=== PATIENT | male | born 1950 | race Caucasian/White ===

== ENCOUNTER → 2018-06-14 15:15 | Outpatient (CLI) | payer MEDICARE, OTHER, SELFPAY ==
--- NOTE | 2018-06-14 | DI.MRI.S_ITS ---
PROCEDURE: MR ELBOW LT WO/W CON INDICATIONS: Lateral left elbow mass TECHNIQUE: Noncontrast coronal proton density fast spin echo and T2 fast spin echo with fat saturation, coronal T1 spin echo with fat saturation, axial and sagittal T1 spin echo and T2 fast spin echo with fat saturation through the elbow. Post-contrast coronal, axial, and sagittal T1 spin echo with fat saturation through the elbow. COMPARISON: None. FINDINGS: Image quality: Excellent. Lateral structures: Surface marker is placed over the anterolateral aspect of elbow joint at the level of radial neck. No enhancing soft tissue mass is seen at the site of the marker. No underlying muscle signal abnormality. The lateral ulnar collateral ligament and radial collateral ligament both appear intact. The overlying common extensor tendon also appears normal. Medial structures: The ulnar collateral ligament appears intact. The overlying common flexor tendon appears normal. The ulnar nerve appears normal in size and signal within the cubital tunnel. Anterior structures: The biceps and brachialis tendons both appear intact as they insert onto the proximal radius and ulna, respectively. No bicipitoradial bursal fluid. The median and radial neurovascular bundles appear normal; no focal muscle atrophy to suggest nerve impingement. Posterior structures: The conjoint triceps tendon from the long and lateral heads appears intact. The medial head of the triceps tendon also appears normal, with direct muscle insertion onto the olecranon. No olecranon bursal fluid. Bone and cartilage: No suspicious osseous enhancement. No bone marrow contusions or fractures. No osteochondral injuries. IMPRESSION: No discrete soft tissue mass or area of abnormal enhancement is seen. No marrow signal abnormality. Obl tendons and ligaments are intact. Dictated by: Jus Courtney M.D. on 06/15/2018 at 12:59 Approved by: Jus Courtney M.D. on 06/15/2018 at 13:05
== END ==
PROVIDERS: Family Provider Family Medicine; PCP Family Medicine; Visit Provider Family Medicine
DX: R22.32 Localized swelling, mass and lump, left upper limb (principal)
CPT/HCPCS: 73223; A9579

== ENCOUNTER → 2020-03-17 10:36 | Outpatient (CLI) | payer MEDICARE, OTHER, SELFPAY ==
--- NOTE | 2020-03-17 | DI.MRI.S_ITS ---
PROCEDURE: MR LUMBAR SPINE WO CON INDICATIONS: Pain in unspecified ankle and joints of unspecified foot TECHNIQUE: Noncontrast sagittal T1 spin echo and T2 fast echo, coronal T2, sagittal STIR, axial T1 and T2 fast spin echo through the lumbar spine. COMPARISON: None. FINDINGS: Image quality: Excellent. Alignment and Curvature: No plain films are available for comparison, for numbering purposes. Thus, for the purposes of this examination, 5 lumbar type vertebral bodies will be presumed, as denoted on the montage panel. This should be confirmed and correlated with plain films, prior to any lumbar spinal intervention. Mild rightward curvature of the mid lumbar spine. Loss of normal lumbar lordosis. Mild grade 1 retrolisthesis of L1 on L2, L2 on L3, and L3 on L4. Bone Marrow: Marrow is of normal overall signal. No acute vertebral body compression fractures. Mild reactive signal within the endplates adjacent to the T11-T12, L1-L2, L2-L3, L3-L4, L4-L5, and L5-S1 intervertebral discs. Spinal Cord: Conus medullaris terminates at the upper L1 level. Visualized cord demonstrates normal signal and size. Paraspinous Soft Tissues: No paravertebral masses. T12-L1: Mild disc desiccation. Mild facet and ligamentum flavum hypertrophy. Mild canal stenosis. No foraminal stenosis. L1-L2: Moderate disc height loss and desiccation. Mild diffuse disc bulge. Mild facet and ligamentum flavum hypertrophy. Mild epidural lipomatosis. Mild canal stenosis. Mild bilateral foraminal stenosis. L2-L3: Moderate disc height loss and desiccation. Moderate diffuse disc bulge. Mild facet and ligamentum flavum hypertrophy. Mild epidural lipomatosis. Moderate canal stenosis. Mild bilateral foraminal stenosis. L3-L4: Moderate disc height loss and desiccation. Moderate diffuse disc bulge with superimposed broad-based left posterolateral and far lateral protrusion. Mild facet hypertrophy bilaterally. Mild canal stenosis. Mild left greater than right foraminal stenosis. L4-L5: Moderate disc height loss and desiccation. Moderate diffuse disc bulge. Moderate facet and ligamentum flavum hypertrophy. Mild canal stenosis. Moderate bilateral foraminal stenosis. L5-S1: Mild disc height loss. Moderate disc desiccation. Mild diffuse disc bulge with small superimposed left paracentral protrusion. Moderate right greater than left facet hypertrophy. Mild canal stenosis. Mild right foraminal stenosis. No left foraminal stenosis. Mild posterior deviation of the left S1 nerve root within the lateral recess. IMPRESSION: 1. Multilevel degenerative disc and facet disease, as well as ligamentum flavum hypertrophy and epidural lipomatosis. 2. Multilevel canal stenosis, worst at L2-L3, where there is moderate canal stenosis. 3. Multilevel foraminal stenoses, worst at L4-L5, where there are moderate foraminal stenosis. 4. Posterior deviation of the left S1 nerve root within the lateral recess at the L5-S1 disc space level. Recommend correlation with clinical symptoms to ascertain relevance of this finding. 5. 5 lumbar type vertebral bodies were presumed for the current report. Plain films of the lumbar spine are recommended for confirmation, prior to any lumbar spinal intervention. Dictated by: Luanne Griffith M.D. on 03/17/2020 at 11:42 Approved by: Luanne Griffith M.D. on 03/17/2020 at 11:46
== END ==
PROVIDERS: Family Provider Family Medicine; PCP Family Medicine; Referring Provider Family Medicine; Visit Provider Family Medicine
DX: M51.16 Intervertebral disc disorders with radiculopathy, lumbar region (principal); M51.17 Intervertebral disc disorders with radiculopathy, lumbosacral region; M48.061 Spinal stenosis, lumbar region without neurogenic claudication; M48.07 Spinal stenosis, lumbosacral region; E88.2 Lipomatosis, not elsewhere classified; M25.579 Pain in unspecified ankle and joints of unspecified foot
CPT/HCPCS: 72148

== ENCOUNTER 2020-05-28 14:04 | Outpatient (CLI) | payer MEDICARE, OTHER, SELFPAY ==
[2020-05-28] VITALS (9 sets, daily range): BP systolic 112–143; BP diastolic 63–80; PULSE 65–78; RESP 12–16; TEMP 37.5; O2SAT 93–98
--- NOTE | 2020-05-28 14:07 | DI.RAD.S_ITS ---
PROCEDURE: PAIN L/S TRANSFORAMINAL INJECT INDICATIONS: SPONDYLOSIS COMPARISON: [facility], MR, MR LUMBAR SPINE WO CON, 03/17/2020, 11:19. FINDINGS: Fluoroscopic spot filming was performed to verify placement of a spinal needle at the L4-L5 level, as labeled on the films. Appropriate location of the needle tip was confirmed by injection of iodinated contrast. IMPRESSION: Intraprocedural examination within normal limits. Dictated by: Sebastián Landrum M.D. on 05/28/2020 at 14:43 Approved by: Sebastián Landrum M.D. on 05/28/2020 at 14:43
[2020-05-28] MEDS: fentaNYL 100 MCG/2 ML INJ 50 MCG IV ×2 (14:54→14:58)
[2020-05-28] MEDS: BUPIVACAINE 0.25% (PF) VIAL 2 ML INJ (14:54)
[2020-05-28] MEDS: DEXAMETHASONE 10 MG/ML VIAL 20 MG INJ (14:55)
[2020-05-28] MEDS: BETAMETHASONE 30 MG/5 ML MDV 6 MG INJ (14:55)
[2020-05-28] MEDS: IOPAMIDOL 15 ML VIAL 3 ML INJ (14:55)
[2020-05-28] MEDS: MIDAZOLAM 5 MG/5 ML VIAL IV (14:58)
--- NOTE | 2020-05-28 15:08 | P.PCN_ITS ---
Date/Time/Diagnoses Date of procedure: 05/28/20 Time of procedure: 15:08 Pre-procedure diagnosis: 1. FORAMINAL STENOSIS WITH LE SYMPTOMS Post-procedure diagnosis: same Procedure Notes Procedure: 1. FLUOROSCOPICALLY GUIDED CONTRAST CONTROLLED TRANSFORAMINAL EPIDURAL STEROID INJECTION - LEFT L4/5 SUBNEURAL ELIEZER Indications: Colt is referred by Dr. Marin and for treatment of HNP with Left LE Symptoms Physician: Ld Matson Total Fluoroscopy time (seconds): 9 Total sedation minutes: 13 Complications: none Procedure in detail & Post-procedure care: FINDINGS Foraminal Nerve Root Compression secondary to disc disease and facet hypertrophy DESCRIPTION OF PROCEDURE Following review of allergy and review of potential side effects and complications, including, but not necessarily limited to, infection, allergic reaction, local tissue breakdown, stroke, temporary or permanent nerve injury, paralysis, and possible , the patient indicated that the patient understood and agreed to proceed. An informed consent document was signed by the patient, witnessed by a nurse, and placed in the patient's chart. Additionally, other treatment options including medications, modalities, and physical therapy were reviewed with the patient. After review of previous anaesthesic history and IV conscious sedation the patient was deemed safe to proceed with today?s procedure with IV conscious sedation as ASA class II designation. Safety time-out was performed to confirm patient ID, procedure to be performed and site of procedure. IV sedation was accomplished with a combination of 5mg of Versed and 100mcg of Fentanyl administered by the RN after DO order, titrated to patient comfort during the course of the procedure while the patient remained responsive to all verbal co mmands In the prone position following sterile prep and drape of the lumbar region, the left L4/5 posterior neuroforamen was identified fluoroscopically. The skin was anesthetized via a 25-gauge 1.5-inch needle with 1% lidocaine solution. At this point, a 25-gauge 3.5-inch spinal needle was atraumatically introduced and advanced under fluoroscopic guidance through the posterior left L4/5 neur oforamen to approximately the anterior aspect of the canal. Depth was confirmed on lateral view. Following negative aspiration, injection of approximately 1.5 cc of Isovue 200 under live fluoroscopy in the AP view confirmed excellent flow along the nerve root, into the epidural space without vascular or intrathecal uptake observed Radiological data, including multiple fluoroscopic views of the lumbosacral spine, reveal a spinal needle at the left L4/5 posterior neuroforamen. Subsequent views show flow of contrast material flowing superiorly and inferiorly along the nerve root confirming epidural flow. Subsequently, a test dose of 1.5 cc of 1% lidocaine solution was administered and patient was observed for two minutes for signs or symptoms of complications, including abdominal pain, shortness of breath, bilateral upper or lower extremity weakness, nausea and vomiting, prior to steroid injection. At this point, a total of 3cc or 20mg of dexamethasone and 6mg of betamethasone was injected without incident. The procedure tolerated the procedure well without signs or symptoms of complications prior to transfer to the recovery area continued monitoring without incident. The patient was then transferred to the recovery area where they were observed for an appropriate time after the injection. The patient reported a VAS score of 7 prior to the procedure and a post-pr ocedure VAS of 1. POST OP INSTRUCTIONS The patient was provided a Pain Log to continue to record their response to the target-specific procedure prior to follow-up visit with their referring physician. Additionally, specific post-injection care instructions and a contact number to our office were provided if concerns arise regarding possible complications associated with the procedure are suspected.
== END 2020-05-28 16:30 | disposition home or self-care (01) ==
LOC: RAD 14:07
PROVIDERS: Family Provider Family Medicine; PCP Family Medicine; Referring Provider Physical Medicine & Rehabilitation; Visit Provider Physical Medicine & Rehabilitation
DX: M48.061 Spinal stenosis, lumbar region without neurogenic claudication (principal); M51.16 Intervertebral disc disorders with radiculopathy, lumbar region
CPT/HCPCS: 64483; 99152; J0702; J1100; J2250; J3010

== ENCOUNTER → 2021-05-19 09:42 | Outpatient (CLI) | payer MEDICARE, OTHER, SELFPAY ==
[2021-05-19 11:09] LABS: Prostate Specific Antigen 0.819 ng/mL (0.10-4.00)
== END ==
PROVIDERS: Family Provider Family Medicine; PCP Family Medicine; Referring Provider Specialist; Visit Provider Specialist
DX: N40.1 Benign prostatic hyperplasia with lower urinary tract symptoms (principal); N13.8 Other obstructive and reflux uropathy
CPT/HCPCS: 36415; 84153

== ENCOUNTER → 2021-08-24 09:08 | Outpatient (CLI) | payer MEDICARE, OTHER, SELFPAY ==
--- NOTE | 2021-08-24 | DI.RAD.S_ITS ---
PROCEDURE: FL BARIUM SWALLOW W SPEECH INDICATIONS: Dysphagia, unspecified COMPARISON: None. TECHNIQUE: Examination was conducted in conjunction with speech pathology per standard protocol. In the lateral projection, filming was performed of the patient swallowing. AP projection filming may also be performed with patient swallowing. COMPARISON: FINDINGS: Function: The oral preparatory phase appears normal, with proper containment. The subsequent oral propulsive phase, pharyngeal phase, and esophageal phase of swallowing also appear normal with all proffered substances. No laryngotracheal penetration or aspiration. There is transient vallecular pooling throughout the exam which clears on subsequent dry swallowing. A calibrated barium tablet passes normally through the gastroesophageal junction. Morphology: No cricopharyngeal bar is identified. No cervical esophageal webs. No Zenker's diverticulum. No strictures. IMPRESSION: No laryngeal penetration or tracheobronchial aspiration. Of note, please see independent report generated by the speech pathologist for further detailed specifics and characterization of the modified speech swallow study. Dictated by: Steve Nichols M.D. on 08/24/2021 at 11:43 Approved by: Steve Nichols M.D. on 08/24/2021 at 11:45
--- NOTE | 2021-08-24 10:30 | ST.SWALLOW ---
Visit Care Team Role Provider Type Ina Garcia MD Attending Provider Non-Staff Family Provider Primary Care Provider Referring Provider Specialty: Medical Address: [address] [place] [address], [place], [place], [facility] Email: Modified Barium Swallow Study CY[employer] DEFENSE FORENSICS ANALYST Modified Barium Swallow Study Start: 08/25/21 08:56 Freq: Status: Active Protocol: Document 08/24/21 10:30 ZS (Rec: 08/25/21 09:02 ZS [id number]) Modified Barium Swallow Study Total Time Visit Start Time 09:30 Visit Stop Time 10:00 Total Visit Minutes 30 Setting Setting Outpatient Care Patient Information Identification Type Name Patient History Colt is a 70-year old male who received a diagnosis of Parkinson's about 8 months ago . Colt reported his primary symptoms with Parkinson's include shorter gait, balance difficulties, and fine motors skills with no change in voice or swallowing that he has noticed at this time. He was referred for choking when swallowing after a clinical bedside swallow assessment with an CYBER DEFENSE FORENSICS ANALYST. Colt reported feeling like food gets hung up on the epiglottis and he can't get it down. Subjective Observations Provided education on process and procedure and Colt expressed understanding and agreed to participate in assessment. Patient Positioning Position View Lat-A/P Imaging Lateral View Textures Administered Trials Presented Thin Liquid via Cup,[place] Liquid via Cup,Honey Liquid via Spoon,Regular Textures Oral Phase Source: MBSIMP (TM) (C) Bolus Specific Scoring Grid Lip Closure No Impairment (WNL) Tongue Control During Bolus Hold Moderate Impairment Bolus Prep/Mastication No Impairment (WNL) Bolus Transport/Lingual Motion No Impairment (WNL) A/P Lingual Propulsion Delay No Oral Residue Mild Impairment Residue Clearing WFL Nasal Regurgitation No Additional Oral Phase Observations No anterior loss of bolus. Moderate posterior loss of bolus during tongue hold, with pooling observed in valleculae and in pyriforms. Pt observed to take large bites, which may negatively contribute to loss of bolus during tongue hold, though mild posterior loss of bolus was observed with smaller bolus sizes as well, suggesting base of tongue weakness. Mastication and a/p propulsion of bolus were timely and efficient. Mild oral residue observed following trials, though pt often swallowed 2-3 times for each bolus, which cleared oral residue. Pharyngeal Phase Source: MBSIMP (TM) (C) Bolus Specific Scoring Grid Delayed Initiation of Pharyngeal Swallow Yes: head of bolus in valleculae Soft Palate Elevation No Impairment (WNL) Tongue Base Strength/Range of Motion Mild Impairment Residue Along the Tongue Base No Clearance of Residue Along Tongue Base WFL Laryngeal Elevation No Impairment (WNL) Anterior Hyoid Movement Moderate Impairment Epiglottic Range of Motion Mild Impairment Vallecular Residue Yes Clearance of Vallecular Residue Mild Impairment Laryngeal Vestibular Closure Mild Impairment Pharyngeal Stripping Wave Severe Impairment Pharyngeal Contraction Severe Impairment Posterior Pharyngeal Wall Residue No Residue in the Pyriform Sinuses Yes Clearance of Residue in the Pyriform WFL Sinuses Additional Pharyngeal Phase Observations Initiation of pharyngeal swallow was delayed, with the head of the bolus in the valleculae. Hyolaryneal elevation was mildly impaired and excursion was minimal, which impairs epiglottic inversion. Epiglottic inversion appeared to vary during swallows, with complete inversion on some swallows and partial inversion on other swallows. Bolus appeared to stay in valleculae during swallow and several swallows were required to move bolus past this point. Residue observed following swallow, though this was mild and cleared with additional swallows. Laryngeal vestibular closure was variable and coincided with epiglottic inversion. When epiglottis inverted fully, laryngeal vestibular closure was complete. With partial inversion, laryngeal vestibular closure was mildly impaired. One instance of penetration (PAS 2) observed with nectar thick liquids. Minimal to no pharyngeal stripping wave observed. UES opened and remained open for a prolonged time, though bolus did not move rapidly through opening. A/P View Textures Administered Trials Presented Thin Liquid via Cup,Barium Tablet A/P View Observations Pharyngeal Contraction Severe Impairment Residue Observed Valleculae Left,Pyriform Sinus Right,Pyriform Sinus Left Esophageal Function Slowed Clearing,Poor Motility, Narrowing Esophageal Clearance Upright Position Moderate Impairment Additional Observations Residue observed in left valleculae and in right and left pyriforms. Bolus appeared to stop in esophagus at a possible stricture proximal to the UES and pt was observed to attempt swallow 3-4 times before bolus began moving through esophagus. Pharyngeal and esophageal passage was observed to be large, which may be due to limited contraction of pharyngeal muscles. Once bolus cleared narrowing, it moved rapidly through esophagus to stomach as did the barium tablet. Clinical Impressions Dysphagia Type Oropharyngeal Dysphagia Findings The pt presents with oropharyngeal dysphgia secondary to Parkinson's. Suspected dyskinesia due to limited hyolaryngeal elevation and minimal to no pharyngeal contraction. Pt also exhibited difficulty with bolus passing from pharyngeal cavity to esophagus, possibly due to UES opening and likely related to a stricture or narrowing in upper esophagus. Pt has appointment with ENT on Monday (08/27/21). Recommend referral to GI for further analysis of possible stricture/narrowing in eosphagus in addition to outpatient speech therapy for exercises to increase comfort and ease with oral intake and a follow-up MBS in 4 months. Rehabilitation Potential Fair Patient Appropriate for Therapy Yes Recommendations Diet Liquids Order Thin Diet Order Regular Medication Recommendation As Tolerated Aspiration Precautions Recommended Precautions Upright at 90 Degrees,Small Bites/Sips Treatment Plan Therapy Recommendations Outpatient Speech Therapy,Base of Tongue Exercises, Compensatory Strategy Education,Other Compensatory Strategies Recommendations Sitting Upright (90 deg),Small Bites and Sips Short Term Goals 1. The pt will perform safe swallow strategies with oral intake independently to reduce risk of aspiration. 2. The pt will perform exercises to increase strength , coordination, and ROM of swallow musculature independently to reduce risk of aspiration and increase comfort with oral intake. Staff Forester Goals The pt will safely tolerate least restrictive diet to meet his nutrition and hydration needs.
--- NOTE | 2021-08-25 14:10 | ST.SWALLOW ---
Visit Care Team Role Provider Type Ina Garcia MD Attending Provider Non-Staff Family Provider Primary Care Provider Referring Provider Specialty: Medical Address: [address] [place] [address], [place], [place], [facility] Email: Modified Barium Swallow Study ICD 9 CODER Modified Barium Swallow Study Start: 08/25/21 08:56 Freq: Status: Active Protocol: Document 08/24/21 10:30 ZS (Rec: 08/25/21 09:02 ZS [id number]) Modified Barium Swallow Study Total Time Visit Start Time 09:30 Visit Stop Time 10:00 Total Visit Minutes 30 Setting Setting Outpatient Care Patient Information Identification Type Name Patient History Colt is a 70-year old male who received a diagnosis of Parkinson's about 8 months ago . Colt reported his primary symptoms with Parkinson's include shorter gait, balance difficulties, and fine motors skills with no change in voice or swallowing that he has noticed at this time. He was referred for choking when swallowing after a clinical bedside swallow assessment with an ICD 9 CODER. Colt reported feeling like food gets hung up on the epiglottis and he can't get it down. Subjective Observations Provided education on process and procedure and Colt expressed understanding and agreed to participate in assessment. Patient Positioning Position View Lat-A/P Imaging Lateral View Textures Administered Trials Presented Thin Liquid via Cup,[place] Liquid via Cup,Honey Liquid via Spoon,Regular Textures Oral Phase Source: MBSIMP (TM) (C) Bolus Specific Scoring Grid Lip Closure No Impairment (WNL) Tongue Control During Bolus Hold Moderate Impairment Bolus Prep/Mastication No Impairment (WNL) Bolus Transport/Lingual Motion No Impairment (WNL) A/P Lingual Propulsion Delay No Oral Residue Mild Impairment Residue Clearing WFL Nasal Regurgitation No Additional Oral Phase Observations No anterior loss of bolus. Moderate posterior loss of bolus during tongue hold, with pooling observed in valleculae and in pyriforms. Pt observed to take large bites, which may negatively contribute to loss of bolus during tongue hold, though mild posterior loss of bolus was observed with smaller bolus sizes as well, suggesting base of tongue weakness. Mastication and a/p propulsion of bolus were timely and efficient. Mild oral residue observed following trials, though pt often swallowed 2-3 times for each bolus, which cleared oral residue. Pharyngeal Phase Source: MBSIMP (TM) (C) Bolus Specific Scoring Grid Delayed Initiation of Pharyngeal Swallow Yes: head of bolus in valleculae Soft Palate Elevation No Impairment (WNL) Tongue Base Strength/Range of Motion Mild Impairment Residue Along the Tongue Base No Clearance of Residue Along Tongue Base WFL Laryngeal Elevation No Impairment (WNL) Anterior Hyoid Movement Moderate Impairment Epiglottic Range of Motion Mild Impairment Vallecular Residue Yes Clearance of Vallecular Residue Mild Impairment Laryngeal Vestibular Closure Mild Impairment Pharyngeal Stripping Wave Severe Impairment Pharyngeal Contraction Severe Impairment Posterior Pharyngeal Wall Residue No Residue in the Pyriform Sinuses Yes Clearance of Residue in the Pyriform WFL Sinuses Additional Pharyngeal Phase Observations Initiation of pharyngeal swallow was delayed, with the head of the bolus in the valleculae. Hyolaryneal elevation was mildly impaired and excursion was minimal, which impairs epiglottic inversion. Epiglottic inversion appeared to vary during swallows, with complete inversion on some swallows and partial inversion on other swallows. Bolus appeared to stay in valleculae during swallow and several swallows were required to move bolus past this point. Residue observed following swallow, though this was mild and cleared with additional swallows. Laryngeal vestibular closure was variable and coincided with epiglottic inversion. When epiglottis inverted fully, laryngeal vestibular closure was complete. With partial inversion, laryngeal vestibular closure was mildly impaired. One instance of penetration (PAS 2) observed with nectar thick liquids. Minimal to no pharyngeal stripping wave observed. UES opened and remained open for a prolonged time, though bolus did not move rapidly through opening. A/P View Textures Administered Trials Presented Thin Liquid via Cup,Barium Tablet A/P View Observations Pharyngeal Contraction Severe Impairment Residue Observed Valleculae Left,Pyriform Sinus Right,Pyriform Sinus Left Esophageal Function Slowed Clearing,Poor Motility, Narrowing Esophageal Clearance Upright Position Moderate Impairment Additional Observations Residue observed in left valleculae and in right and left pyriforms. Bolus appeared to stop in esophagus at a possible stricture proximal to the UES and pt was observed to attempt swallow 3-4 times before bolus began moving through esophagus. Pharyngeal and esophageal passage was observed to be large, which may be due to limited contraction of pharyngeal muscles. Once bolus cleared narrowing, it moved rapidly through esophagus to stomach as did the barium tablet. Clinical Impressions Dysphagia Type Oropharyngeal Dysphagia Findings The pt presents with oropharyngeal dysphgia secondary to Parkinson's. Suspected dyskinesia due to limited hyolaryngeal elevation and minimal to no pharyngeal contraction. Pt also exhibited difficulty with bolus passing from pharyngeal cavity to esophagus, possibly due to UES opening and likely related to a stricture or narrowing in upper esophagus. Pt has appointment with ENT on Monday (08/27/21). Recommend referral to GI for further analysis of possible stricture/narrowing in esophagus in addition to outpatient speech therapy for exercises to increase comfort and ease with oral intake and a follow-up MBS in 4 months. Rehabilitation Potential Fair Patient Appropriate for Therapy Yes Recommendations Diet Liquids Order Thin Diet Order Regular Medication Recommendation As Tolerated Aspiration Precautions Recommended Precautions Upright at 90 Degrees,Small Bites/Sips Treatment Plan Therapy Recommendations Outpatient Speech Therapy,Base of Tongue Exercises, Compensatory Strategy Education,Other Compensatory Strategies Recommendations Sitting Upright (90 deg),Small Bites and Sips Short Term Goals 1. The pt will perform safe swallow strategies with oral intake independently to reduce risk of aspiration. 2. The pt will perform exercises to increase strength , coordination, and ROM of swallow musculature independently to reduce risk of aspiration and increase comfort with oral intake. [employer] Goals The pt will safely tolerate least restrictive diet to meet his nutrition and hydration needs.
--- NOTE | 2021-08-25 14:15 | ST-OP ANOTE ---
Physical, Occupational & Speech Therapy At [facility] Speech Therapy Note Called and left message for pt to request name of ENT for his Monday (08/27) appointment and name of his [facility] from [facility].
== END ==
PROVIDERS: Family Provider Family Medicine; PCP Family Medicine; Referring Provider Family Medicine; Visit Provider Family Medicine
DX: R13.10 Dysphagia, unspecified (principal); G20 Parkinson's disease
CPT/HCPCS: 74230; 92611

== ENCOUNTER → 2023-05-02 12:14 | Outpatient (CLI) | payer MEDICARE, OTHER, SELFPAY ==
--- NOTE | 2023-05-02 12:16 | DI.RAD.S_ITS ---
PROCEDURE: XR SHOULDER RT MIN 2V INDICATIONS: Right shoulder pain TECHNIQUE: 3 views of the shoulder were acquired. COMPARISON: None. FINDINGS: Bones: No fractures or dislocations. No suspicious bony lesions. Visualized ribs appear intact. Moderate degenerative changes of the acromioclavicular joint. Undersurface irregularity of the distal clavicle and acromion. Soft tissues: No suspicious soft tissue calcifications. IMPRESSION: No acute bony abnormality. Moderate degenerative changes of the right acromioclavicular joint with undersurface irregularity/spurring of the distal clavicle and acromion. If there is persistent clinical concern for internal soft tissue derangement, consider MRI for further evaluation. Dictated by: Hugo Roca M.D. on 05/02/2023 at 15:37 Approved by: Hugo Roca M.D. on 05/02/2023 at 15:38
--- NOTE | 2023-05-02 12:16 | DI.RAD.S_ITS ---
PROCEDURE: XR HIP W PEL IF DONE RT 2V INDICATIONS: Right buttock pain TECHNIQUE: AP pelvis with lateral view(s) of the right hip(s). COMPARISON: None. FINDINGS: Bones: No fractures or dislocations. Pelvic ring appears intact. No suspicious bony lesions. Moderate degenerative changes of the bilateral hips more pronounced on the right. Lower lumbar spondylosis. Soft tissues: The visualized bowel gas pattern is normal. No suspicious soft tissue calcifications. IMPRESSION: Right hip without acute fracture or dislocation. Moderate degenerative changes of the right hip. Lower lumbar spondylosis. Dictated by: Hugo Roca M.D. on 05/02/2023 at 15:39 Approved by: Hugo Roca M.D. on 05/02/2023 at 15:39
== END ==
PROVIDERS: Family Provider Family Medicine; PCP Family Medicine; Referring Provider Anesthesiology; Visit Provider Anesthesiology
DX: M47.816 Spondylosis without myelopathy or radiculopathy, lumbar region (principal); M25.511 Pain in right shoulder; M79.18 Myalgia, other site; G89.29 Other chronic pain
CPT/HCPCS: 73030; 73502; 99214